=== PATIENT | female | born 1945 ===

== ENCOUNTER → 2018-05-08 | Outpatient (CLI) | payer MEDICARE, OTHER | END | disposition home or self-care (01) | LOC: ECT 09:07 | DX: F33.3 Major depressive disorder, recurrent, severe with psychotic symptoms (principal); F41.1 Generalized anxiety disorder; F34.1 Dysthymic disorder; I10 Essential (primary) hypertension; M54.40 Lumbago with sciatica, unspecified side; Z79.82 Long term (current) use of aspirin ==

== ENCOUNTER 2018-05-14 05:39 | Outpatient (RCR) | payer MEDICARE, OTHER ==
[~2018-05-14] VITALS: Ht 162.6 cm; Wt 54.0 kg
[2018-05-14] MEDS ORDERED: Midazolam 2mg/2ml Inj ONE (05:40)
[2018-05-14] MEDS ORDERED: Ketorolac 30mg Inj ONE (05:40)
[2018-05-14] MEDS ORDERED: Succinylcholine 20mg/ml 10ml vial ONE (05:40)
[2018-05-14] MEDS ORDERED: Methohexital Sodium Syr 100mg/10ml IVP ONE (05:40)
[2018-05-14] MEDS ORDERED: NS 500ML ONE (05:40)
[2018-05-14 07:44] VITALS: BP 167/92
[2018-05-14] MEDS ORDERED: Sodium Chloride 500ML 500 ML IV ONE (08:18)
[2018-05-14] MEDS ORDERED: Ketorolac 30mg Inj IV ONE (08:18)
[2018-05-14 09:06] VITALS: BP 167/92
[2018-05-14 09:20] VITALS: BP 204/96
[2018-05-14 09:25] VITALS: BP 165/76
[2018-05-14 09:30] VITALS: BP 167/74
[2018-05-14 09:35] VITALS: BP 158/70
[2018-05-16] MEDS ORDERED: NS 500ML ONE (08:00)
[2018-05-16] MEDS ORDERED: Methohexital Sodium Syr 100mg/10ml IVP ONE (08:00)
[2018-05-16] MEDS ORDERED: Ketorolac 30mg Inj ONE (08:00)
[2018-05-16] MEDS ORDERED: Midazolam 2mg/2ml Inj ONE (08:00)
[2018-05-16] MEDS ORDERED: Succinylcholine 20mg/ml 10ml vial ONE (08:00)
[2018-05-16 09:39] VITALS: BP 147/74
[2018-05-16] MEDS ORDERED: Sodium Chloride 500ML 500 ML IV ONE (09:51)
[2018-05-16 09:55] VITALS: BP 205/94
[2018-05-16 10:00] VITALS: BP 165/72
[2018-05-16 10:05] VITALS: BP 149/59
[2018-05-16 10:10] VITALS: BP 152/62
[2018-05-18] MEDS ORDERED: Ketorolac 30mg Inj ONE (08:00)
[2018-05-18] MEDS ORDERED: Midazolam 2mg/2ml Inj ONE (08:00)
[2018-05-18] MEDS ORDERED: Methohexital Sodium Syr 100mg/10ml IVP ONE (08:00)
[2018-05-18] MEDS ORDERED: NS 500ML ONE (08:00)
[2018-05-18] MEDS ORDERED: Succinylcholine 20mg/ml 10ml vial ONE (08:00)
[2018-05-18 08:59] VITALS: BP 141/70
[2018-05-18] MEDS ORDERED: Sodium Chloride 500ML 500 ML IV ONE (09:12)
[2018-05-18 09:15] VITALS: BP 196/103
[2018-05-18 09:20] VITALS: BP 169/51
[2018-05-18 09:25] VITALS: BP 132/49
[2018-05-18 09:30] VITALS: BP 141/47
[2018-05-18 09:35] VITALS: BP 144/43
[2018-05-21] MEDS ORDERED: Succinylcholine 20mg/ml 10ml vial ONE (08:00)
[2018-05-21] MEDS ORDERED: Methohexital Sodium Syr 100mg/10ml IVP ONE (08:00)
[2018-05-21] MEDS ORDERED: Midazolam 2mg/2ml Inj ONE (08:00)
[2018-05-21] MEDS ORDERED: NS 500ML ONE (08:00)
[2018-05-21] MEDS ORDERED: Ketorolac 30mg Inj ONE (08:00)
[2018-05-21 09:02] VITALS: BP 140/80
[2018-05-21] MEDS ORDERED: Sodium Chloride 500ML 500 ML IV ONE (09:18)
[2018-05-21 09:20] VITALS: BP 210/77
[2018-05-21 09:25] VITALS: BP 192/89
[2018-05-21 09:30] VITALS: BP 141/59
[2018-05-21 09:35] VITALS: BP 130/56
[2018-05-23] MEDS ORDERED: Succinylcholine 20mg/ml 10ml vial ONE (08:00)
[2018-05-23] MEDS ORDERED: Midazolam 2mg/2ml Inj ONE (08:00)
[2018-05-23] MEDS ORDERED: Ketorolac 30mg Inj ONE (08:00)
[2018-05-23] MEDS ORDERED: Methohexital Sodium Syr 100mg/10ml IVP ONE (08:00)
[2018-05-23] MEDS ORDERED: NS 500ML ONE (08:00)
[2018-05-23 08:51] VITALS: BP 141/69
[2018-05-23] MEDS ORDERED: Sodium Chloride 500ML 500 ML IV ONE (09:04)
[2018-05-23 09:05] VITALS: BP 206/105
[2018-05-23 09:10] VITALS: BP 171/71
[2018-05-23 09:15] VITALS: BP 134/66
[2018-05-23 09:20] VITALS: BP 154/57
[2018-05-25] MEDS ORDERED: Methohexital Sodium Syr 100mg/10ml IVP ONE (07:00)
[2018-05-25] MEDS ORDERED: Midazolam 2mg/2ml Inj ONE (07:00)
[2018-05-25] MEDS ORDERED: Succinylcholine 20mg/ml 10ml vial ONE (07:00)
[2018-05-25] MEDS ORDERED: NS 500ML ONE (07:00)
[2018-05-25] MEDS ORDERED: Ketorolac 30mg Inj ONE (07:00)
[2018-05-25 08:02] VITALS: BP 129/72
[2018-05-25] MEDS ORDERED: Sodium Chloride 500ML 500 ML IV ONE (08:13)
[2018-05-25 08:15] VITALS: BP 184/52
[2018-05-25 08:20] VITALS: BP 159/52
[2018-05-25 08:25] VITALS: BP 139/61
[2018-05-25 08:30] VITALS: BP 142/54
[2018-05-30] MEDS ORDERED: Succinylcholine 20mg/ml 10ml vial ONE (06:00)
[2018-05-30] MEDS ORDERED: Ketorolac 60mg Inj IM ONE (06:00)
[2018-05-30] MEDS ORDERED: Methohexital Sodium Syr 100mg/10ml IVP ONE (06:00)
[2018-05-30] MEDS ORDERED: Midazolam 2mg/2ml Inj ONE (06:00)
[2018-05-30] MEDS ORDERED: NS 500ML ONE (06:00)
[2018-05-30 09:07] VITALS: BP 126/72
[2018-05-30] MEDS ORDERED: Sodium Chloride 500ML 500 ML IV ONE (09:23)
[2018-05-30 09:25] VITALS: BP 169/76
[2018-05-30 09:30] VITALS: BP 158/73
[2018-05-30 09:35] VITALS: BP 150/74
[2018-05-30 09:40] VITALS: BP 149/65
== END 2018-06-01 | disposition home or self-care (01) ==
LOC: ECT 05:39
DX: F33.3 Major depressive disorder, recurrent, severe with psychotic symptoms (principal); F34.1 Dysthymic disorder; F41.1 Generalized anxiety disorder
CPT/HCPCS: 90870; J0330; J1885; J2250; J7040

== ENCOUNTER 2018-06-06 07:14 | Outpatient (RCR) | payer MEDICARE, OTHER ==
[~2018-06-06] VITALS: Ht 162.6 cm; Wt 54.0 kg
[2018-06-06] MEDS ORDERED: Methohexital Sodium Syr 100mg/10ml IVP ONE (07:15)
[2018-06-06] MEDS ORDERED: Ketorolac 30mg Inj ONE (07:15)
[2018-06-06] MEDS ORDERED: Succinylcholine 20mg/ml 10ml vial ONE (07:15)
[2018-06-06] MEDS ORDERED: NS 500ML ONE (07:15)
[2018-06-06 08:48] VITALS: BP 129/73
[2018-06-06] MEDS ORDERED: Sodium Chloride 500ML 500 ML IV ONE (09:05)
[2018-06-06 09:10] VITALS: BP 165/66
[2018-06-06 09:15] VITALS: BP 144/54
[2018-06-06 09:20] VITALS: BP 135/55
[2018-06-06 09:25] VITALS: BP 135/48
[2018-06-08] MEDS ORDERED: Methohexital Sodium Syr 100mg/10ml IVP ONE (07:00)
[2018-06-08] MEDS ORDERED: Ketorolac 30mg Inj ONE (07:00)
[2018-06-08] MEDS ORDERED: NS 500ML ONE (07:00)
[2018-06-08] MEDS ORDERED: Succinylcholine 20mg/ml 10ml vial ONE (07:00)
[2018-06-08 08:01] VITALS: BP 131/67
[2018-06-08] MEDS ORDERED: Sodium Chloride 500ML 500 ML IV ONE (08:13)
[2018-06-08 08:15] VITALS: BP 172/80
[2018-06-08 08:20] VITALS: BP 167/69
[2018-06-08 08:25] VITALS: BP 148/61
[2018-06-08 08:30] VITALS: BP 151/61
[2018-06-11] MEDS ORDERED: Succinylcholine 20mg/ml 10ml vial ONE (08:00)
[2018-06-11] MEDS ORDERED: Ketorolac 30mg Inj ONE (08:00)
[2018-06-11] MEDS ORDERED: NS 500ML ONE (08:00)
[2018-06-11] MEDS ORDERED: Methohexital Sodium Syr 100mg/10ml IVP ONE (08:00)
[2018-06-11 08:34] VITALS: BP 136/72
[2018-06-11] MEDS ORDERED: Sodium Chloride 500ML 500 ML IV ONE (08:47)
[2018-06-11 08:55] VITALS: BP_SYST 169; BP_SYST 185; BP_DIAS 64; BP_DIAS 81
[2018-06-11 09:00] VITALS: BP 144/50
[2018-06-11 09:05] VITALS: BP 142/77
[2018-06-18] MEDS ORDERED: Succinylcholine 20mg/ml 10ml vial ONE (07:00)
[2018-06-18] MEDS ORDERED: Ketorolac 30mg Inj ONE (07:00)
[2018-06-18] MEDS ORDERED: NS 500ML ONE (07:00)
[2018-06-18] MEDS ORDERED: Methohexital Sodium Syr 100mg/10ml IVP ONE (07:00)
[2018-06-18 11:07] VITALS: BP 147/79
[2018-06-18] MEDS ORDERED: Sodium Chloride 500ML 500 ML IV ONE (11:21)
[2018-06-18 11:25] VITALS: BP 178/65
[2018-06-18 11:30] VITALS: BP 165/73
[2018-06-18 11:35] VITALS: BP 148/70
[2018-06-18 11:40] VITALS: BP 149/69
== END 2018-07-01 | disposition home or self-care (01) ==
LOC: ECT 07:14
DX: F33.3 Major depressive disorder, recurrent, severe with psychotic symptoms (principal)
CPT/HCPCS: 90870; J0330; J1885; J7040

== ENCOUNTER 2018-07-04 07:07 | Outpatient (RCR) | payer MEDICARE, OTHER ==
[~2018-07-04] VITALS: Ht 30.5 cm; Wt 0.5 kg
[2018-07-04] MEDS ORDERED: Methohexital Sodium Syr 100mg/10ml IVP ONE (07:08)
[2018-07-04] MEDS ORDERED: NS 500ML ONE (07:08)
[2018-07-04] MEDS ORDERED: Ketorolac 60mg Inj IM ONE (07:08)
[2018-07-04] MEDS ORDERED: Succinylcholine 20mg/ml 10ml vial ONE (07:08)
[2018-07-04 08:27] VITALS: BP 130/74
[2018-07-04] MEDS ORDERED: Sodium Chloride 500ML 500 ML IV ONE (08:41)
[2018-07-04 08:45] VITALS: BP 176/76
[2018-07-04 08:50] VITALS: BP 175/95
[2018-07-04 08:55] VITALS: BP 142/51
[2018-07-04 09:00] VITALS: BP 124/52
[2018-07-25] MEDS ORDERED: NS 500ML ONE (08:00)
[2018-07-25] MEDS ORDERED: Ketorolac 30mg Inj ONE (08:00)
[2018-07-25] MEDS ORDERED: Methohexital Sodium Syr 100mg/10ml IVP ONE (08:00)
[2018-07-25] MEDS ORDERED: Succinylcholine 20mg/ml 10ml vial ONE (08:00)
[2018-07-25 09:22] VITALS: BP 136/69
[2018-07-25] MEDS ORDERED: Sodium Chloride 500ML 500 ML IV ONE (09:35)
[2018-07-25 09:40] VITALS: BP 172/85
[2018-07-25 09:45] VITALS: BP 106/77
[2018-07-25 09:50] VITALS: BP 153/66
[2018-07-25 09:55] VITALS: BP 147/63
== END 2018-08-01 | disposition home or self-care (01) ==
LOC: ECT 07:07
DX: F33.3 Major depressive disorder, recurrent, severe with psychotic symptoms (principal)
CPT/HCPCS: 90870; J0330; J1885; J7040

== ENCOUNTER 2018-08-20 05:03 | Outpatient (RCR) | payer MEDICARE, OTHER ==
[~2018-08-20] VITALS: Ht 30.5 cm; Wt 0.5 kg
[2018-08-20] MEDS ORDERED: NS 500ML ONE (05:04)
[2018-08-20] MEDS ORDERED: Ketorolac 30mg Inj ONE (05:04)
[2018-08-20] MEDS ORDERED: Succinylcholine 20mg/ml 10ml vial ONE (05:04)
[2018-08-20] MEDS ORDERED: Methohexital Sodium Syr 100mg/10ml IVP ONE (05:04)
[2018-08-20 08:06] VITALS: BP 135/75
[2018-08-20] MEDS ORDERED: Sodium Chloride 500ML 500 ML IV ONE (08:22)
[2018-08-20 08:25] VITALS: BP 165/95
[2018-08-20 08:30] VITALS: BP 148/53
[2018-08-20 08:35] VITALS: BP 136/50
[2018-08-20 08:40] VITALS: BP 132/48
== END 2018-08-31 | disposition home or self-care (01) ==
LOC: ECT 05:03
DX: F33.3 Major depressive disorder, recurrent, severe with psychotic symptoms (principal)
CPT/HCPCS: 90870; J0330; J1885; J7040

== ENCOUNTER 2018-09-14 04:28 | Outpatient (RCR) | payer MEDICARE, OTHER ==
[~2018-09-14] VITALS: Ht 162.6 cm; Wt 54.0 kg
[2018-09-14] MEDS ORDERED: Methohexital Sodium Syr 100mg/10ml IVP ONE (04:29)
[2018-09-14] MEDS ORDERED: Succinylcholine 20mg/ml 10ml vial ONE (04:29)
[2018-09-14] MEDS ORDERED: Ketorolac 30mg Inj ONE (04:29)
[2018-09-14] MEDS ORDERED: NS 500ML ONE (04:29)
[2018-09-14 07:18] VITALS: BP 143/75
[2018-09-14] MEDS ORDERED: Sodium Chloride 500ML 500 ML IV ONE (07:30)
[2018-09-14 07:35] VITALS: BP 191/85
[2018-09-14 07:40] VITALS: BP 157/63
[2018-09-14 07:45] VITALS: BP 150/58
[2018-09-14 07:50] VITALS: BP 148/50
== END 2018-10-01 | disposition home or self-care (01) ==
LOC: ECT 04:28
DX: F33.3 Major depressive disorder, recurrent, severe with psychotic symptoms (principal)
CPT/HCPCS: 90870; J0330; J1885; J7040

== ENCOUNTER 2018-10-10 06:32 | Outpatient (RCR) | payer MEDICARE, OTHER ==
[~2018-10-10] VITALS: Ht 30.5 cm; Wt 0.5 kg
[2018-10-12] MEDS ORDERED: Ketorolac 30mg Inj ONE (08:00)
[2018-10-12] MEDS ORDERED: Succinylcholine 20mg/ml 10ml vial ONE (08:00)
[2018-10-12] MEDS ORDERED: Methohexital Sodium Syr 100mg/10ml IVP ONE (08:00)
[2018-10-12] MEDS ORDERED: NS 500ML ONE (08:00)
[2018-10-12 08:07] VITALS: BP 135/68
[2018-10-12 08:25] VITALS: BP 187/88
[2018-10-12 08:30] VITALS: BP 147/117
[2018-10-12 08:35] VITALS: BP 133/43
== END 2018-11-01 | disposition home or self-care (01) ==
LOC: ECT 06:32
DX: F33.3 Major depressive disorder, recurrent, severe with psychotic symptoms (principal); F34.1 Dysthymic disorder; F41.1 Generalized anxiety disorder; I10 Essential (primary) hypertension; H18.51 Endothelial corneal dystrophy; M54.30 Sciatica, unspecified side; M41.9 Scoliosis, unspecified; Z85.828 Personal history of other malignant neoplasm of skin; N81.10 Cystocele, unspecified
CPT/HCPCS: 90870; J0330; J1885; J7040

== ENCOUNTER 2018-11-09 05:00 | Outpatient (RCR) | payer MEDICARE, OTHER ==
[~2018-11-09] VITALS: Ht 30.5 cm; Wt 0.5 kg
[2018-11-09] MEDS ORDERED: Succinylcholine 20mg/ml 10ml vial ONE (05:01)
[2018-11-09] MEDS ORDERED: Methohexital Sodium Syr 100mg/10ml IVP ONE (05:01)
[2018-11-09] MEDS ORDERED: Ketorolac 30mg Inj ONE (05:01)
[2018-11-09] MEDS ORDERED: NS 500ML ONE (05:01)
[2018-11-09 08:07] VITALS: BP 142/86
[2018-11-09 08:25] VITALS: BP 157/79
[2018-11-09 08:30] VITALS: BP 139/52
[2018-11-09 08:35] VITALS: BP 131/81
[2018-11-09 08:40] VITALS: BP 141/53
== END 2018-11-29 | disposition home or self-care (01) ==
LOC: ECT 05:00
DX: F33.3 Major depressive disorder, recurrent, severe with psychotic symptoms (principal)
CPT/HCPCS: 90870; J0330; J1885; J7040

== ENCOUNTER 2018-12-12 04:22 | Outpatient (RCR) | payer MEDICARE, OTHER ==
[~2018-12-12] VITALS: Ht 162.6 cm; Wt 54.2 kg
[2018-12-12] MEDS ORDERED: NS 500ML ONE (07:00)
[2018-12-12] MEDS ORDERED: Ketorolac 60mg Inj IM ONE (07:00)
[2018-12-12] MEDS ORDERED: Succinylcholine 20mg/ml 10ml vial ONE (07:00)
[2018-12-12] MEDS ORDERED: Methohexital Sodium Syr 100mg/10ml IVP ONE (07:00)
[2018-12-12 08:05] VITALS: BP 151/91
[2018-12-12 08:20] VITALS: BP 186/85
[2018-12-12 08:25] VITALS: BP 154/54
[2018-12-12 08:30] VITALS: BP 155/57
[2018-12-12 08:35] VITALS: BP 146/57
[2018-12-17] MEDS ORDERED: NS 500ML ONE (07:00)
[2018-12-17] MEDS ORDERED: Succinylcholine 20mg/ml 10ml vial ONE (07:00)
[2018-12-17] MEDS ORDERED: Ketorolac 30mg Inj ONE (07:00)
[2018-12-17] MEDS ORDERED: Methohexital Sodium Syr 100mg/10ml IVP ONE (07:00)
[2018-12-17 07:51] VITALS: BP 138/78
[2018-12-17 08:05] VITALS: BP 184/85
[2018-12-17 08:10] VITALS: BP 159/71
[2018-12-17 08:15] VITALS: BP 162/74
[2018-12-17 08:20] VITALS: BP 163/71
[2018-12-19] MEDS ORDERED: Ketorolac 60mg Inj IM ONE (08:00)
[2018-12-19] MEDS ORDERED: Succinylcholine 20mg/ml 10ml vial ONE (08:00)
[2018-12-19] MEDS ORDERED: NS 500ML ONE (08:00)
[2018-12-19] MEDS ORDERED: Methohexital Sodium Syr 100mg/10ml IVP ONE (08:00)
[2018-12-19 10:46] VITALS: BP 146/76
[2018-12-19 11:05] VITALS: BP 179/72
[2018-12-19 11:10] VITALS: BP 144/63
[2018-12-19 11:15] VITALS: BP 144/63
[2018-12-19 11:20] VITALS: BP 148/70
[2018-12-24] MEDS ORDERED: Methohexital Sodium Syr 100mg/10ml IVP ONE (06:00)
[2018-12-24] MEDS ORDERED: Succinylcholine 20mg/ml 10ml vial ONE (06:00)
[2018-12-24] MEDS ORDERED: NS 500ML ONE (06:00)
[2018-12-24] MEDS ORDERED: Ketorolac 30mg Inj ONE (06:00)
[2018-12-24 07:47] VITALS: BP 126/69
[2018-12-24] MEDS ORDERED: Atropine Sulfate 0.4mg/ml inj IVP PRN (08:08)
[2018-12-24 08:10] VITALS: BP 147/63
[2018-12-24 08:15] VITALS: BP 138/61
[2018-12-24 08:20] VITALS: BP 135/59
[2018-12-24 08:25] VITALS: BP 141/59
== END 2018-12-30 | disposition home or self-care (01) ==
LOC: ECT 04:22
DX: F33.3 Major depressive disorder, recurrent, severe with psychotic symptoms (principal)
CPT/HCPCS: 90870; J0330; J1885; J7040

== ENCOUNTER 2018-12-31 06:13 | Outpatient (RCR) | payer MEDICARE, OTHER ==
[~2018-12-31] VITALS: Ht 162.6 cm; Wt 54.0 kg
[2018-12-31] MEDS ORDERED: Ketorolac 30mg Inj ONE (06:14)
[2018-12-31] MEDS ORDERED: Methohexital Sodium Syr 100mg/10ml IVP ONE (06:14)
[2018-12-31] MEDS ORDERED: Succinylcholine 20mg/ml 10ml vial ONE (06:14)
[2018-12-31] MEDS ORDERED: NS 500ML ONE (06:14)
[2018-12-31 08:08] VITALS: BP 140/77
[2018-12-31 08:20] VITALS: BP 189/91
[2018-12-31 08:25] VITALS: BP 163/65
[2018-12-31 08:30] VITALS: BP 158/64
[2018-12-31 08:35] VITALS: BP 155/64
[2019-01-09 07:15] VITALS: BP 140/76
[2019-01-09 07:30] VITALS: BP 199/88
[2019-01-09 07:35] VITALS: BP 160/78
[2019-01-09 07:40] VITALS: BP 144/71
[2019-01-09 07:45] VITALS: BP 145/67
[2019-01-09] MEDS ORDERED: Succinylcholine 20mg/ml 10ml vial ONE (08:00)
[2019-01-09] MEDS ORDERED: NS 500ML ONE (08:00)
[2019-01-09] MEDS ORDERED: Methohexital Sodium Syr 100mg/10ml IVP ONE (08:00)
[2019-01-09] MEDS ORDERED: Ketorolac 30mg Inj ONE (08:00)
[2019-01-28] MEDS ORDERED: Succinylcholine 20mg/ml 10ml vial ONE (08:00)
[2019-01-28] MEDS ORDERED: Ketorolac 30mg Inj ONE (08:00)
[2019-01-28] MEDS ORDERED: Methohexital Sodium Syr 100mg/10ml IVP ONE (08:00)
[2019-01-28] MEDS ORDERED: NS 500ML ONE (08:00)
[2019-01-28 08:52] VITALS: BP 140/71
[2019-01-28 09:10] VITALS: BP 156/65
[2019-01-28 09:15] VITALS: BP 152/66
[2019-01-28 09:20] VITALS: BP 138/78
[2019-01-28 09:25] VITALS: BP 141/51
== END 2019-01-29 | disposition home or self-care (01) ==
LOC: ECT 06:13
DX: F33.3 Major depressive disorder, recurrent, severe with psychotic symptoms (principal)
CPT/HCPCS: 90870; J0330; J1885; J7040

== ENCOUNTER 2019-02-18 04:41 | Outpatient (RCR) | payer MEDICARE, OTHER ==
[~2019-02-18] VITALS: Ht 162.6 cm; Wt 54.0 kg
[2019-02-18] MEDS ORDERED: Methohexital Sodium Syr 100mg/10ml IVP ONE (04:42)
[2019-02-18] MEDS ORDERED: NS 500ML ONE (04:42)
[2019-02-18] MEDS ORDERED: Succinylcholine 20mg/ml 10ml vial ONE (04:42)
[2019-02-18] MEDS ORDERED: Ketorolac 30mg Inj ONE (04:42)
[2019-02-18 08:46] VITALS: BP 153/73
[2019-02-18 09:00] VITALS: BP 147/73
[2019-02-18 09:05] VITALS: BP 143/68
[2019-02-18 09:10] VITALS: BP 142/58
[2019-02-18 09:15] VITALS: BP 151/74
== END 2019-03-01 | disposition home or self-care (01) ==
LOC: ECT 04:41
DX: F33.3 Major depressive disorder, recurrent, severe with psychotic symptoms (principal)
CPT/HCPCS: 90870; J0330; J1885; J7040

== ENCOUNTER 2019-03-18 05:55 | Outpatient (RCR) | payer MEDICARE, OTHER ==
[~2019-03-18] VITALS: Ht 30.5 cm; Wt 0.5 kg
[2019-03-18] MEDS ORDERED: Methohexital Sodium Syr 100mg/10ml IVP ONE (05:56)
[2019-03-18] MEDS ORDERED: Ketorolac 30mg Inj ONE (05:56)
[2019-03-18] MEDS ORDERED: NS 500ML ONE (05:56)
[2019-03-18] MEDS ORDERED: Succinylcholine 20mg/ml 10ml vial ONE (05:56)
[2019-03-18 07:40] VITALS: BP 131/70
[2019-03-18 07:58] VITALS: BP 181/70
[2019-03-18 08:03] VITALS: BP 156/64
[2019-03-18 08:08] VITALS: BP 142/60
[2019-03-18 08:13] VITALS: BP 143/54
== END 2019-03-31 | disposition home or self-care (01) ==
LOC: ECT 05:55 → EDSTATUS 05:55
DX: F33.3 Major depressive disorder, recurrent, severe with psychotic symptoms (principal)
CPT/HCPCS: 90870; J0330; J1885; J7040

== ENCOUNTER 2019-04-17 04:41 | Outpatient (RCR) | payer MEDICARE, OTHER ==
[~2019-04-17] VITALS: Ht 162.6 cm; Wt 62.6 kg
[2019-04-17] MEDS ORDERED: Succinylcholine 20mg/ml 10ml vial ONE (06:00)
[2019-04-17] MEDS ORDERED: Ketorolac 30mg Inj ONE (06:00)
[2019-04-17] MEDS ORDERED: NS 500ML ONE (06:00)
[2019-04-17] MEDS ORDERED: Methohexital Sodium Syr 100mg/10ml IVP ONE (06:00)
[2019-04-17 07:57] VITALS: BP 136/74
[2019-04-17 08:17] VITALS: BP 139/57
[2019-04-17 08:22] VITALS: BP 138/58
[2019-04-17 08:27] VITALS: BP 136/60
[2019-04-17 08:32] VITALS: BP 138/55
== END 2019-05-01 | disposition home or self-care (01) ==
LOC: ECT 04:41
DX: F33.3 Major depressive disorder, recurrent, severe with psychotic symptoms (principal)
CPT/HCPCS: 90870; J0330; J1885; J7040

== ENCOUNTER 2019-05-15 05:31 | Outpatient (RCR) | payer MEDICARE, OTHER ==
[~2019-05-15] VITALS: Ht 162.6 cm; Wt 54.0 kg
[2019-05-15] MEDS ORDERED: Methohexital Sodium Syr 100mg/10ml IVP ONE (05:32)
[2019-05-15] MEDS ORDERED: NS 500ML ONE (05:32)
[2019-05-15] MEDS ORDERED: Ketorolac 60mg Inj IM ONE (05:32)
[2019-05-15] MEDS ORDERED: Succinylcholine 20mg/ml 10ml vial ONE (05:32)
[2019-05-20 08:11] VITALS: BP 134/69
[2019-05-20 08:25] VITALS: BP 174/79
[2019-05-20 08:30] VITALS: BP 146/66
[2019-05-20 08:35] VITALS: BP 141/65
[2019-05-20 08:40] VITALS: BP 145/68
== END 2019-06-01 | disposition home or self-care (01) ==
LOC: ECT 05:31
DX: F33.3 Major depressive disorder, recurrent, severe with psychotic symptoms (principal)
CPT/HCPCS: 90870; J0330; J7040

== ENCOUNTER 2019-06-17 05:57 | Outpatient (RCR) | payer MEDICARE, OTHER ==
[~2019-06-17] VITALS: Ht 162.6 cm; Wt 54.0 kg
[2019-06-26] MEDS ORDERED: Methohexital Sodium Syr 100mg/10ml IVP ONE (06:00)
[2019-06-26] MEDS ORDERED: Succinylcholine 20mg/ml 10ml vial ONE (06:00)
[2019-06-26] MEDS ORDERED: NS 500ML ONE (06:00)
[2019-06-26] MEDS ORDERED: Ketorolac 30mg Inj ONE (06:00)
[2019-06-26 10:07] VITALS: BP 144/70
[2019-06-26 10:18] VITALS: BP 136/73
[2019-06-26 10:23] VITALS: BP 153/66
[2019-06-26 10:28] VITALS: BP 148/65
[2019-06-26 10:33] VITALS: BP 145/77
== END 2019-07-01 | disposition home or self-care (01) ==
LOC: ECT 05:57
DX: F33.3 Major depressive disorder, recurrent, severe with psychotic symptoms (principal)
CPT/HCPCS: 90870; J0330; J1885; J7040

== ENCOUNTER 2019-07-24 04:43 | Outpatient (RCR) | payer MEDICARE, OTHER | END 2019-08-01 | disposition home or self-care (01) | LOC: ECT 04:43 | DX: Z53.9 Procedure and treatment not carried out, unspecified reason (principal) ==